=== PATIENT | female | born 2000 | race American Indian/Alaskan Native ===

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

== ENCOUNTER 2018-01-25 13:31 | Emergency (ER) | payer SELFPAY ==
[2018-01-25 16:43] LABS: Bacteria,Urine 1+ /HPF (Negative); Bilirubin,Urine NEG (Negative); Blood,Urine SM (Negative); Color,Urine Yellow (Yellow); Protein,Urine <15 mg/dL mg/dL (Negative); Urobilinogen,Urine < 2.0 mg/dL (<2.0)
[2018-01-25 16:44] LABS: HCG Qualitative,Urine Negative (Negative)
--- NOTE | 2018-01-25 17:26 | Emergency Department Report ---
HPI - General Chief Complaint: Upper Respiratory Infection Time Seen by Provider: 01/25/18 16:20 - HPI HPI: Patient is a 19-year-old female who presents to the clinic complaining of sore throat 2 days. She admits to nonproductive cough, nasal drainage, congestion. Pt states that her mom's sister were recently sick with the flu so she feels like she got sick from them. She states that last menstrual period 01/23/2018 and currently on her cycle. She denies fever/ headache/chills/nausea/vomiting/abdominal pain/shortness of breath/ear pain bilaterally. ED Past Medical Hx - Past Medical History Previous Medical History?: No Additional medical history: scabies - Surgical History Past Surgical History?: No - Social History Smoking Status: Never Smoker Substance Use Type: None - Medications Home Medications: Home Medications Medication Instructions Recorded Confirmed Last Taken Type Hydroxyzine HCl 25 mg PO Q6HR #16 tablet 05/19/16 Unknown Rx Permethrin 5% [Acticin 5% CREAM] 1 applicatio TP ONCE #60 gm 05/19/16 Unknown Rx Benzocaine/Menthol [Cepacol Sore 1 each MM Q4H PRN #18 lozenge 02/05/17 Unknown Rx Throat Lozenge] Amoxicillin/K Clav Tab [Augmentin 1 tab PO Q12HR #14 tab 02/24/17 Unknown Rx 875 mg] Famotidine [Pepcid] 20 mg PO BID #20 tablet 12/29/17 Unknown Rx Ondansetron [Zofran ODT TAB] 8 mg PO Q12HR #20 tab.rapdis 12/29/17 Unknown Rx Ibuprofen [Motrin 600 MG tab] 600 mg PO Q8H PRN #25 tablet 01/25/18 Unknown Rx Sulfamethoxazole/Trimethoprim 1 each PO BID #14 tablet 01/25/18 Unknown Rx [Bactrim DS TAB] guaiFENesin ER [Mucinex ER] 600 mg PO Q12H #20 tablet.er 01/25/18 Unknown Rx guaiFENesin [Robitussin] 200 mg PO Q4HR #100 ml 01/25/18 Unknown Rx metroNIDAZOLE [Metronidazole] 500 mg PO BID #14 tablet 01/25/18 Unknown Rx ED Review of Systems ROS: Stated complaint: FLU SX Other details as noted in HPI Constitutional: denies: chills, fever Eyes: denies: eye pain, eye discharge, vision change ENT: denies: ear pain, throat pain Respiratory: denies: cough, shortness of breath, wheezing Cardiovascular: denies: chest pain, palpitations Endocrine: no symptoms reported Gastrointestinal: denies: abdominal pain, nausea, diarrhea Genitourinary: denies: urgency, dysuria, discharge Musculoskeletal: denies: back pain, joint swelling, arthralgia Skin: denies: rash, lesions Neurological: denies: headache, weakness, paresthesias Psychiatric: denies: anxiety, depression Hematological/Lymphatic: denies: easy bleeding, easy bruising Physical Exam - Physical Exam Vital Signs: Vital Signs 01/25/18 14:10 Temperature 98.4 F Pulse Rate 85 Respiratory 18 Rate Blood Pressure 113/59 O2 Sat by Pulse 98 Oximetry Physical Exam: GENERAL: Alert and oriented x3, no apparent distress, Normal Gait, atraumatic. HEAD: Head is normocephalic and a-traumatic. EYES: Extra ocular muscles are intact. Pupils are equal, round, and reactive to light and accommodation. EARS: symetrical, atraumatic, non tender, ear canal clear and moderate cerumen, tympanic membrance non inflamed. gross auditory nml bilaterally. NOSE: Nose symetrical, Nontender,Nares appeared normal. MOUTH:Mouth is well hydrated and without lesions. Tonsils nonerythematous or swollen, Uvula midline, Tongue not elevated. Mucous membranes are moist. Posterior pharynx clear, no exudate or lesions. Patent airways. NECK: Supple. Non edematous, No lymphadenopathy or thyromegaly. No C-spine tenderness LUNGS: Symetrical with respiration, No wheezing, no rales or crackles, CTAB. HEART: S1, S2 present, regular rate and rhythm without murmur, no rubs, no gallops. Non tender to palpation SKIN: Warm and dry, No lesions, No ulceration or induration present. ED Course Vital Signs 01/25/18 14:10 Temperature 98.4 F Pulse Rate 85 Respiratory 18 Rate Blood Pressure 113/59 O2 Sat by Pulse 98 Oximetry ED Medical Decision Making - Medical Decision Making 17-year-old male presents with upper respiratory infection. No fever during the ED stay. Discussed with pt symptomatic relief with [id number] medications. Discussed continue Tylenol and Motrin as needed for fever and pain. Discussed increase fluids and diet intake. Discussed rest much needed. Discussed daily vitamin C for immune booster. Discussed follow-up with building associate in 3-5 days. Patient'sverbally states she understands and will comply the following instructions and follow-up Vital signs stable. Patient is in no acute or respiratory distress Critical care attestation.: If time is entered above; I have spent that time in minutes in the direct care of this critically ill patient, excluding procedure time. ED Disposition Clinical Impression: Bronchitis URI (upper respiratory infection) Qualifiers: URI type: unspecified URI Qualified Code(s): J06.9 - Acute upper respiratory infection, unspecified UTI (urinary tract infection) Qualifiers: Urinary tract infection type: acute cystitis Hematuria presence: without hematuria Qualified Code(s): N30.00 - Acute cystitis without hematuria Disposition: TO HOME OR SELFCARE Is pt being admited?: No Does the pt Need Aspirin: No Condition: Stable Instructions: Chronic Bronchitis (ED) Additional Instructions: Make sure to follow up with the primary care physician as discussed. Take all your medications as you've been prescribed. If you have any worsening symptoms or develop new symptoms please return to ED immediately. Prescriptions: guaiFENesin [Robitussin] 200 mg PO Q4HR #100 ml guaiFENesin ER [Mucinex ER] 600 mg PO Q12H #20 tablet.er Ibuprofen [Motrin 600 MG tab] 600 mg PO Q8H PRN #25 tablet PRN Reason: Pain metroNIDAZOLE [Metronidazole] 500 mg PO BID #14 tablet Sulfamethoxazole/Trimethoprim [Bactrim DS TAB] 1 each PO BID #14 tablet Referrals: PRIMARY CARE, [Primary Care Provider] - 3-5 Days Forms: Work/School Release Form(ED) Time of Disposition: 17:27
[2018-01-25 17:49] VITALS: BP 108/55
== END 2018-01-25 17:49 | disposition home or self-care (01) ==
LOC: ED 13:31
DX: J40 Bronchitis, not specified as acute or chronic (principal); J06.9 Acute upper respiratory infection, unspecified; N39.0 Urinary tract infection, site not specified
CPT/HCPCS: 81001; 81025; 87086; 99283